=== PATIENT | male | born 1995 | race Two or more races ===

== ENCOUNTER 2021-03-01 13:34 | Emergency (ER) | payer OTHER, SELFPAY ==
[2021-03-01 13:48] VITALS: BP 118/71; PULSE 81; RESP 18; TEMP 36.8; O2SAT 100
--- NOTE | 2021-03-01 14:01 | PC.NURSE ---
1350 following vs mother/pt state they are going directly to er because pain has worsened since arrival. pt states does not want to seen at this time. observed pt ambulates without difficulty in no acute distress.
== END 2021-03-01 13:50 | disposition left against medical advice (07) ==
PROVIDERS: Emergency Provider Nurse Practitioner Family
DX: Z53.21 Procedure and treatment not carried out due to patient leaving prior to being seen by health care provider (principal)
CPT/HCPCS: 99199

== ENCOUNTER 2021-03-01 14:21 | Observation (INO) | payer OTHER, SELFPAY ==
--- NOTE | ~2021-03-01 | CT_ITS ---
EXAMINATION: CT abdomen pelvis wo con DATE: 03/01/2021 14:44 INDICATION: Right flank pain, nausea TECHNIQUE: Computed tomography (CT) of the abdomen and pelvis was performed without intravenous contr ast. Automated exposure control and iterative reconstruction technique were employed. Exam dose: 182 .08 mGy-cm total exam DLP. COMPARISON: 01/21/[address] renal scan FINDINGS: The lung bases are clear of infiltrate or consolidation. Normal heart size. No pericardial or pleural effusion. The liver, gallbladder, bile ducts, spleen, pancreas, pancreatic duct, and adrenal glands and left ki dney appear unremarkable. There is a 4 mm distal right ureteral calculus near the right ureterovesical junction with moderately prominent right hydroureteronephrosis as a result. No other urinary tract calculus is detected. No r enal mass lesion is evident. Normal caliber of the abdominal aorta. No intraperitoneal or retroperitoneal or pelvic mass lesion or adenopathy or ascites. No bowel obstruction, bowel wall thickening, pneumatosis or intraperitoneal free air. Included skeletal structures are unremarkable. IMPRESSION: 4 mm distal right ureteral calculus with moderate right hydroureteronephrosis Reviewed, dictated and finalized at [facility]. Reviewed, dictated and finalized at location [facility]. IMPRESSION: 4 mm distal right ureteral calculus with moderate right hydrourete ronephrosis
--- NOTE | ~2021-03-01 | XR_ITS ---
EXAMINATION: XR retrograde pyelo w/stent RT EXAM DATE: 03/02/2021 16:45 INDICATION: Retrograde, stent placement. Obstructive nephropathy. TECHNIQUE: Fluoroscopy used during XR retrograde pyelo w/stent RT performed by Dr. Scott Ace MD, urologist. The radiologist Donn Serrato M.D. dictating this report of the image(s) available wa s not present for the procedure. Total fluoroscopic time of 45 seconds. The DAP for this procedure was 259 radcm2. A total of 8 images sent to PACS from the exam. Cine run(s) available for review. FINDINGS: Internet Sales Representative image likely demonstrates the right UVJ 4 mm stone. Right ureter was cannulated, inje cted. There is moderate right-sided hydroureteronephrosis. A double-J ureteral stent was placed. Cor relate with procedure note. IMPRESSION: Moderate right hydroureteronephrosis. Stent in position. Reviewed, dictated and finalized at location [facility].
[2021-03-01 14:23] VITALS: BP 119/73; PULSE 70; RESP 16; TEMP 36.4; O2SAT 100
[2021-03-01 14:50] LABS: Basophils Absolute Auto 0.1 K/mm3 (0.0-0.1); Basophils Percent Auto 0.6 % (0.2-1.2); Eosinophils Absolute Auto 0.1 K/mm3 (0-0.3); Eosinophils Percent Auto 0.6 % (0-4.4); Hemoglobin 16.5 g/dL (14.0-18.0); Immature Granulocyte Absolute 0.05 K/mm3 (0.00-0.031); Immature Granulocyte Percent A 0.4 % (0-0.5); Lymphocytes Absolute Auto 0.95 K/mm3 (0.9-3.2); Lymphocytes Percent Auto 7.7 % (18.3-44.2); Mean Corpuscular Hemoglobin 29.9 pg (26-34); Mean Corpuscular Volume 90.7 fl (80-100); Monocytes Absolute Auto 0.7 K/mm3 (0.1-0.6); Monocytes Percent Auto 5.6 % (2.6-8.5); Neutrophils Absolute Auto 10.6 K/mm3 (1.3-6.7); Neutrophils Percent Auto 85.1 % (45.5-73.1); Platelet Count Result 194 k/mm3 (150-375); Red Blood Count 5.51 M/mm3 (4.6-6.20); Red Cell Distribution Width 12.5 % (11.5-14.5); White Blood Count 12.4 K/mm3 (4.5-10.0)
[2021-03-01 14:59] LABS: Anion Gap 8 mmol/L (8-16); Blood Urea Nitrogen 21 mg/dL (9-20); Calcium 9.5 mg/dL (8.4-10.2); Carbon Dioxide 29 mmol/L (22-30); Chloride 103 mmol/L (98-107); Estimated CRCL calculation 60 ml/min; Estimated Glomerular Filt Rate 54; Glucose 97 mg/dL (65-110); Potassium 4.2 mmol/L (3.4-5.0); Sodium 140 mmol/L (137-145)
[2021-03-01 17:08] LABS: Add Urine Microscopic? YES; Appearance Urine Clear (Clear); Bilirubin Urine Negative (Negative); Blood Urine 2+ (Negative); Color Urine Yellow (Yellow); Glucose Urine UA Negative (Negative); Ketones Urine Trace mg/dL (Negative); Leukocyte Esterase Ur Negative LEU/UL (Negative); Mucus Urine Rare /lpf; Nitrate Urine Negative (Negative); Protein Urine Negative (Negative); RBC Urine >75 /hpf (0-2); Specific Grav Ur 1.026 (1.001-1.035); WBC Urine 0-3 /hpf
--- NOTE | 2021-03-01 17:10 | ED.ABDPAIN ---
HPI - Abdominal Pain General Chief Complaint: Abdominal Pain <Nafisa Walter PA-C - Last Filed: 03/01/21 21:20> Stated Complaint: RIGHT FLANK PAIN <Nafisa Walter PA-C - Last Filed: 03/01/21 21:20> Time Seen by Provider: 03/01/21 16:56 <Nafisa Walter PA-C - Last Filed: 03/01/21 21:20> Source: patient <Nafisa Walter PA-C - Last Filed: 03/01/21 21:20> Mode of arrival: ambulatory <Nafisa Walter PA-C - Last Filed: 03/01/21 21:20> Limitations: no limitations <Nafisa Walter PA-C - Last Filed: 03/01/21 21:20> History of Present Illness HPI narrative: This is a 25 year old male that presents to the ER for right sided flank pain since yesterday. Associated with nausea. Reports history of kidney stones. Denies fever, vomiting, dysuria, hematuria. <Nafisa Walter PA-C - Last Filed: 03/01/21 21:20> Related Data Home Medications: Home Medications Medication Instructions Recorded Confirmed No Home Medications 03/01/21 03/01/21 <Nafisa Walter PA-C - Last Filed: 03/01/21 21:20> Allergies/Adverse Reactions: Allergies Allergy/AdvReac Type Severity Reaction Status Date / Time strawberry Allergy Swelling Verified 03/01/21 14:22 <Nafisa Walter PA-C - Last Filed: 03/01/21 21:20> Review of Systems Review of Systems: Narrative: CONSTITUTIONAL: Denies fever GASTROINTESTINAL: Reports nausea. Denies abdominal pain, vomiting GENITOURINARY: Denies dysuria or hematuria. <Nafisa Walter PA-C - Last Filed: 03/01/21 21:20> All systems reviewed & are unremarkable except as noted in HPI and below <Nafisa Walter PA-C - Last Filed: 03/01/21 21:20> [facility] Past Medical History Medical History: Medical History (Updated 03/01/21 @ 21:20 by Nafisa Walter PA-C) History of asthma <Nafisa Walter PA-C - Last Filed: 03/01/21 21:20> Social History Social History: Social History (System 07/28/20 @ 11:46 by Tim Romero) Smoking status: Former smoker Alcohol intake: never Substance use: never Substance use type: does not use Gender identity (if verbalized by the patient): Male Spiritual care concerns: No <Nafisa Walter PA-C - Last Filed: 03/01/21 21:20> Exam Narrative: Exam Narrative: GENERAL: Well-appearing, well-nourished, and in no acute distress. HEAD: Normocephalic, atraumatic. EYES: EOMI. CHEST: Clear to auscultation. No respiratory distress. No wheezes rales or rhonchi HEART: Regular rate and rhythm. No murmur heard. Normal peripheral pulses. ABDOMEN: Soft, nondistended, normal active bowel sounds. Mild tenderness to palpation throughout the right side of the abdomen, without guarding. No CVA tenderness EXTREMITIES: Normal range of motion. No edema. SKIN: Warm, dry, no rash. NEURO: No focal deficits. Alert and oriented x3. PSYCH: Normal mood and affect <Nafisa Walter PA-C - Last Filed: 03/01/21 21:20> Course ASSIGNMENT AGENT/PA Physician Supervision For this patient encounter, I reviewed the ASSIGNMENT AGENT or PA documentation, treatment plan, and medical decision making; and I had [id number] time with this patient. <Tavon Archuleta MD - Last Filed: 03/01/21 21:38> Consultations Consultation #1: Since patient has required IV narcotics and is still uncomfortable, recommends admission for further pain control and possible intervention. <Nafisa Walter PA-C - Last Filed: 03/01/21 21:20> Date: 03/01/21 <Nafisa Walter PA-C - Last Filed: 03/01/21 21:20> Time: 20:00 <Nafisa Walter PA-C - Last Filed: 03/01/21 21:20> Consultation #2: Spoke with hospitalist about patient and work-up who accepts admission <Nafisa Walter PA-C - Last Filed: 03/01/21 21:20> Date: 03/01/21 <Nafisa Walter PA-C - Last Filed: 03/01/21 21:20> Time: 20:05 <Nafisa Walter PA-C - Last Filed: 03/01/21 21:20> Vital Signs Vital signs: Vital Signs Temperature 36.4 C 03/01/21 14:23 Pulse Rate 70
[2021-03-01] MEDS: SODIUM CHLORIDE 0.9% IV 1,000 ML 999 ML IV CONT (17:48)
[2021-03-01] MEDS: ONDANSETRON INJ 4 MG/2 ML VIAL IV PUSH (17:49)
[2021-03-01] MEDS: MORPHINE SULFATE (*CRX) 4 MG/ML INJ IV PUSH ×2 (17:49→20:59)
[2021-03-01 17:54] VITALS: BP 121/62; PULSE 84; RESP 18; TEMP 36.7; O2SAT 100
[2021-03-01 19:54] VITALS: BP 119/52; PULSE 81; RESP 16; TEMP 36.6; O2SAT 100
--- NOTE | 2021-03-01 20:00 | PM.IMHP ---
H&P: HPI History of Present Illness Date/Time: 03/01/21 20:00 Chief Complaint: Right flank pain. Narrative: This is a pleasant 25-year-old male with history of kidney stones at the age of 89 presented to the emergency department earlier today for evaluation of right-sided flank pain. He developed nearly sudden onset of right-sided flank pain yesterday that he describes as sharp and shooting in nature. It has been constant since the outset but seems to be colicky in nature. the pain has not radiated. He gives no significant aggravating or alleviating factors. Tylenol taken at home did not provide much relief. Associated symptoms include nausea, vomiting, and mild dysuria. There was blood in his UA today and a CT of the abdomen pelvis showed a 4 mm distal right ureteral calculus with moderate right hydroureteronephrosis. Unfortunately he has had ongoing pain and he is being admitted in this setting. He has not had a documented fever but does report chills and sweats. Currently rating his pain 8/10. Review of Systems Review of Systems: Narrative: Twelve systems were reviewed with pertinent positives and negatives as per HPI. No recent cold or flu symptoms. No known exposure to those positive for COVID-19. He has noticed a slight decrease in urine output. Except as documented, all other systems were reviewed and are negative. [facility] Past Medical History Medical History (Updated 03/01/21 @ 23:38 by Bobbi Mcknight PA-C) Asthma Kidney stone (~2005) Surgical History Surgical History No history of previous surgery Family History Family History (Updated 03/01/21 @ 23:36 by Bobbi Mcknight PA-C) Father Asthma Social History Social History (Updated 03/01/21 @ 23:38 by Bobbi Mcknight PA-C) Social History: The patient lives in [place] with his family. He works at [employer] and is studying criminal justice at [employer]. No alcohol, tobacco, or substance use. He designates his mother, Lexy Rogers, as his surrogate decision maker. Code status: Full code. Meds Home Medications and Allergies Home Medications Medication Instructions Recorded Confirmed Type No Home Medications 03/01/21 03/01/21 History Allergies Allergy/AdvReac Type Severity Reaction Status Date / Time strawberry Allergy Swelling Verified 03/01/21 14:22 Vital Signs Vital Signs - 24 hr 03/01/21 14:23 03/01/21 17:54 03/01/21 19:54 Temperature 97.6 F 98.0 F 97.9 F Pulse Rate 70 84 81 Respiratory Rate 16 18 16 Blood Pressure 119/73 121/62 119/52 L Pulse Oximetry 100 100 100 03/01/21 21:31 Temperature 97.0 F L Pulse Rate 64 Respiratory Rate 16 Blood Pressure 122/56 L Pulse Oximetry 100 H&P: Results Labs Labs: Short CBC 03/01/21 Range/Units 14:33 WBC 12.4 H (4.5-10.0) K/mm3 Hgb 16.5 (14.0-18.0) g/dL Hct 50.0 (42.0-52.0) % Plt Count 194 (150-375) k/mm3 BMP 03/01/21 14:33 Sodium 140 Potassium 4.2 Chloride 103 Carbon Dioxide 29 BUN 21 H Creatinine 1.60 H Glucose 97 Calcium 9.5 Urine 03/01/21 Range/Units 16:45 Urine Color Yellow (Yellow) Urine Appearance Clear (Clear) Urine pH 7.0 (5.0-9.0) Ur Specific [place] 1.026 (1.001-1.035) Urine Protein Negative (Negative) mg/dL Urine Glucose (UA) Negative (Negative) mg/dL Impressions Abdomen/Pelvis CT 03/01/21 14:47 IMPRESSION: 4 mm distal right ureteral calculus with moderate right hydroureteronephrosis. Assessment and Plan Assessment and plan (1) Ureteral calculus: Code(s): N20.1 - Calculus of ureter Status: Acute (2) Hydroureteronephrosis: Code(s): N13.30 - Unspecified hydronephrosis Status: Acute (3) Acute kidney injury: Code(s): N17.9 - Acute kidney failure, unspecified Status: Acute Additional Plan The patient presents today with acute right flank pain that started yesterday. He was found t
--- NOTE | 2021-03-01 21:22 | ADMGEN ---
This patient, Tabitha Rogers, was admitted to Medical Room 349-01. Patient/family oriented to hospital policies and general routines including ID bracelet, bed and alarms, visiting hours, pain management, procedures, bathroom and other care routines, personal items, smoking policy, room service/diet, and visiting hours. Information on how to activate the Rapid Response Team has been discussed. Patient/Family are encouraged to report perceived risks to care and to ask questions if they do not understand what they are told or what they should do.
[2021-03-01] MEDS: SODIUM CHLORIDE 0.9% IV 1,000 ML 125 ML IV CONT (21:30)
[2021-03-01 21:31] VITALS: BP 122/56; PULSE 64; RESP 16; TEMP 36.1; O2SAT 100; BMI 19.1
[2021-03-01] MEDS: KETOROLAC 15 MG/ML VIAL (*BKC) IV PUSH (22:12)
[2021-03-02] VITALS (11 sets, daily range): BP systolic 84–116; BP diastolic 50–87; PULSE 44–95; RESP 12–20; TEMP 35.9–36.7; O2SAT 99–100
[2021-03-02] MEDS: MORPHINE SULFATE (*CRX) 4 MG/ML INJ IV PUSH (05:58)
[2021-03-02] MEDS: SODIUM CHLORIDE 0.9% IV 1,000 ML 100 ML IV CONT ×2 (05:59→18:33)
[2021-03-02 06:00] LABS: Hematocrit 42.7 % (42.0-52.0); Hemoglobin 14.1 g/dL (14.0-18.0); Mean Corpuscular Hemoglobin 29.6 pg (26-34); Mean Corpuscular Volume 89.7 fl (80-100); Mean Platelet Volume 9.8 fl (7.4-10.4); Platelet Count Result 159 k/mm3 (150-375); Red Blood Count 4.76 M/mm3 (4.6-6.20); Red Cell Distribution Width 12.1 % (11.5-14.5); White Blood Count 7.1 K/mm3 (4.5-10.0)
[2021-03-02 06:17] LABS: Anion Gap 8 mmol/L (8-16); Blood Urea Nitrogen 21 mg/dL (9-20); Calcium 8.3 mg/dL (8.4-10.2); Carbon Dioxide 25 mmol/L (22-30); Chloride 105 mmol/L (98-107); Estimated CRCL calculation 55 ml/min; Estimated Glomerular Filt Rate 50; Glucose 86 mg/dL (65-110); Magnesium 1.8 mg/dL (1.6-2.3); Potassium 3.8 mmol/L (3.4-5.0); Sodium 138 mmol/L (137-145)
--- NOTE | 2021-03-02 07:45 | WPDURCON ---
Assessment and Plan Assessment and plan (1) Calculus of proximal right ureter: Code(s): N20.1 - Calculus of ureter Status: Acute Assessment and Plan: plan discussed with patient. I plan on right ureteroscopy with stone extraction and possible stent placement should he not pass the stone during the day today. It is currently scheduled for for p.m.. He understands risks of bleeding, infection, damage to the urinary tract, inability remove the stone. He agrees to proceed. It is possible he could go home postoperatively unless the medicine service wants to monitor his creatinine. (2) Hydroureteronephrosis: Code(s): N13.30 - Unspecified hydronephrosis Status: Acute (3) Acute kidney injury: Code(s): N17.9 - Acute kidney failure, unspecified Status: Acute Urology Consult Note HPI Date Seen: 03/02/21 Requesting Physician: Eugenie Tesfaye PA-C Primary Care Provider: TU[facility]ER PHYSICIAN Consult Narrative Narrative: Donald Rogers is a 25 year old male With a history of nephrolithiasis as a child. He has not had a stone since age 11. He had acute onset of right-sided flank pain on Tuesday morning. He left work due to the pain and tried to deal with things at home. Pain became so intense he presented the emergency room yesterday. He was found have acute kidney injury with a elevated creatinine. He denies any visible blood in the urine. He denies any symptoms of urinary tract infection. He denies any nausea vomiting. He has not seen the stone pass overnight and does continue to have discomfort. Review of Systems Review of Systems: All systems reviewed & are unremarkable except as noted in HPI and below PMFSH Past Medical History Medical History (Updated 03/02/21 @ 07:48 by Scott Ace MD) Asthma Kidney stone (~2005) Surgical History Surgical History No history of previous surgery Family History Family History (Updated 03/01/21 @ 23:36 by Bobbi Mcknight PA-C) Father Asthma Social History Social History (Updated 03/01/21 @ 23:38 by Bobbi Mcknight PA-C) Social History: The patient lives in [place] with his family. He works at [employer] and is studying criminal justice at [employer]. No alcohol, tobacco, or substance use. He designates his mother, Lexy Rogers, as his surrogate decision maker. Code status: Full code. Meds Home Medications and Allergies Home Medications Medication Instructions Recorded Confirmed Type No Home Medications 03/01/21 03/01/21 History Allergies Allergy/AdvReac Type Severity Reaction Status Date / Time strawberry Allergy Swelling Verified 03/01/21 14:22 Vital Signs Vital Signs - 24 hr 03/01/21 14:23 03/01/21 17:54 03/01/21 19:54 Temperature 97.6 F 98.0 F 97.9 F Pulse Rate 70 84 81 Respiratory Rate 16 18 16 Blood Pressure 119/73 121/62 119/52 L Pulse Oximetry 100 100 100 03/01/21 21:31 03/02/21 05:06 Temperature 97.0 F L 96.7 F L Pulse Rate 64 73 Respiratory Rate 16 16 Blood Pressure 122/56 L 103/56 L Pulse Oximetry 100 100 Exam Const: General: cooperative, healthy appearing and Physically active Nutritional Appearance: average body habitus HENMT: Head: normal to inspection Ears: hearing grossly normal bilaterally Face and sinus: normal facial exam Eyes: General: appearance normal, both eyes and all related structures Resp: Effort & Inspection: normal respiratory effort, able to speak in complete sentences and no cough GI: Inspection: normal to inspection Back/Spine/Pelvis: Back: CVA tenderness Skin: General skin exam: normal color, no rashes or lesions noted and skin not dry Neuro: General: oriented to person, oriented to place and oriented to time Speech: normal speech Extrem: General: normal to inspection Psych: Appearance: grossly normal and well kempt Results Labs CBC & Chem 7: 03/02/21 05:22
--- NOTE | 2021-03-02 07:51 | WPDHPUPDATE1 ---
History and Physical Update Update Date/Time: 03/02/21 07:51 History and Physical has been reviewed, including an updated exam of the patient. There are NO changes in the patient's condition. Risks, benefits, and alternatives have been discussed and questions answered. Patient agrees to proceed with procedure.
--- NOTE | 2021-03-02 14:45 | PC.NURSE ---
Patient to OR per stretcher. Report to JOSE A Hernández.
[2021-03-02] MEDS: LACTATED RINGERS 1,000 ML 30 ML IV CONT (14:50)
--- NOTE | 2021-03-02 15:41 | WPDANESEPPF ---
Anes - Initial Pre Proc Eval Procedure: Operation Date: 03/02/21 16:00 Proposed Procedures p Cystoscopy, Right Ureterocopy,Stone Extraction - Scott Ace MD Date/Time: 03/02/21 15:41 Surgeon: Eugenie Tesfaye PA-C Pre Op Diagnosis: Ureterolithiasis Patient Data Age: 25 Gender: M Height: 1.83 m Weight: 64 kg Last Vital Signs Temp 36.2 C L 03/02/21 15:01 Pulse 74 03/02/21 14:00 Resp 20 03/02/21 14:00 BP 115/77 03/02/21 14:00 Pulse Ox 100 03/02/21 14:00 Allergies Allergy/AdvReac Type Severity Reaction Status Date / Time strawberry Allergy Swelling Verified 03/02/21 15:00 Home Medications Medication Instructions Recorded Confirmed Type No Home Medications 03/01/21 03/02/21 History Laboratory Tests 03/01/21 03/02/21 03/02/21 16:45 05:22 05:22 WBC 7.1 K/mm3 K/mm3 (4.5-10.0) RBC 4.76 M/mm3 M/mm3 (4.6-6.20) Hgb 14.1 g/dL g/dL (14.0-18.0) Hct 42.7 % % (42.0-52.0) MCV 89.7 fl fl (80-100) MCH 29.6 pg pg (26-34) MCHC 33.0 g/dl g/dl (32-36) RDW 12.1 % % (11.5-14.5) Plt Count 159 k/mm3 k/mm3 (150-375) MPV 9.8 fl fl (7.4-10.4) Sodium 138 mmol/L mmol/L (137-145) Potassium 3.8 mmol/L mmol/L (3.4-5.0) Chloride 105 mmol/L mmol/L (98-107) Carbon Dioxide 25 mmol/L mmol/L (22-30) Anion Gap 8 mmol/L mmol/L (8-16) BUN 21 mg/dL H mg/dL (9-20) Creatinine 1.70 mg/dL H mg/dL (0.7-1.3) Estim Creat Clear Calc 55 ml/min ml/min Estimated GFR 50 L (59 - ) Glucose 86 mg/dL mg/dL (65-110) Calcium 8.3 mg/dL L mg/dL (8.4-10.2) Magnesium 1.8 mg/dL mg/dL (1.6-2.3) Urine Color Yellow (Yellow) Urine Appearance Clear (Clear) Urine pH 7.0 (5.0-9.0) Ur Specific [place] 1.026 (1.001-1.035) Urine Protein Negative mg/dL mg/dL (Negative) Urine Glucose (UA) Negative mg/dL mg/dL (Negative) Urine Ketones Trace mg/dL mg/dL (Negative) Ur Blood (Man) 2+ H (Negative) Urine Nitrate Negative (Negative) Urine Bilirubin Negative (Negative) Urine Urobilinogen 4.0 mg/dL H mg/dL (<2.0) Leukocyte Esterase Rfl Negative GER/UL GER/UL (Negative) Urine RBC >75 /hpf H /hpf (0-2) Urine WBC 0-3 /hpf /hpf Hyaline Casts 3-4 /lpf H /lpf (None) Urine Mucus Rare /lpf /lpf Patient hx anesthesia problems: none Family hx anesthesia problems: none [facility] Past Medical History Medical History Asthma Kidney stone (~2005) Surgical History Surgical History No history of previous surgery Family History Family History Father Asthma Social History Social History Social History: The patient lives in [place] with his family. He works at [employer] and is studying criminal justice at [email or web address]. No alcohol, tobacco, or substance use. He designates his mother, Lexy Rogers, as his surrogate decision maker. Code status: Full code. Anes - Eval Final PreProcedure Day of Procedure 03/02/21 15:41 Patient weight: normal Heart: regular rate and rhythm Lungs: clear to auscultation Airway: Mallampati scale class II Neurological: alert and oriented Last oral intake: >/= 8 hours ASA classification: II Emergent: no Anesthetic plan: proceed Anesthesia type and monitoring: general LMA and standard monitoring Informed Consent: The patient's anesthetic plan and its attendant risks and benefits were discussed with the patient/family/POA. Questions were solicited and answers provided t
[2021-03-02] MEDS: ceFAZolin 2 GM/D5W 50 ML 2 GM/50 ML BAG IVPB (16:05)
--- NOTE | 2021-03-02 16:47 | P.OP_ITS ---
Procedure Note - Detailed Date of Procedure 03/02/21 Pre-op Diagnosis Ureterolithiasis Post-op Diagnosis same Procedure Performed cystoscopy, right retrograde pyelogram, right ureteroscopy, stone extraction, stent placement Surgeon Scott Ace MD Anesthesia general Indications this is a young male with a right distal stone and acute kidney injury he presents today for stone extraction Findings false passage noted at right distal ureter. Stone successfully extracted. Stent placed Description of Procedure she was correctly identified. Informed consent obtained. From the operating room. Given general anesthesia. He was prepped and draped in a sterile fashion. Skin appropriate perioperative antibiotics. Time-out performed. I performed cystoscopy. The bladder was examined was normal. I attempted to place a guidewire on the right. The stone was impacted at the right ureteral orifice. I attempted a been sent, a glide, an angled Glidewire. I was unable to get past the stone. I decided performed rigid ureteroscopy. I guided the distal ureter and a false passage was encountered. I was then able to find the true ureter. I placed a guidewire up into the kidney. I then performed rigid ureteroscopy. The stone was encountered. It was extracted intact. I then did a retrograde pyelogram. There is hydronephrosis without extravasation. I made sure the guidewire was in the renal pelvis. I then placed a 4.8 variable length stent. Proximal coil in the renal pelvis. Distal coil in the bladder. He was awakened transferred to PACU in stable condition. Implants Variable length stent 4.8 [place] Estimated Blood Loss 1 Drains Yes ( variable length stent) Packing No Pathology yes ( stone) Complications No immediate complications Condition stable Disposition PACU
--- NOTE | 2021-03-02 16:50 | WPDUROPN2 ---
Subjective Subjective Date/Time Seen: 03/02/21 16:50 successful ureteroscopy with stone extraction. Stent was placed. If his renal function improves he can go home tomorrow. Will need stent removal in 1 week. Please sent home with pain medicine, Ditropan, Pyridium. Objective Data Vital Signs Vital Signs: Vital Signs - 24 hr 03/01/21 17:54 03/01/21 19:54 03/01/21 21:31 Temperature 98.0 F 97.9 F 97.0 F L Pulse Rate 84 81 64 Respiratory Rate 18 16 16 Blood Pressure 121/62 119/52 L 122/56 L Pulse Oximetry 100 100 100 03/02/21 05:06 03/02/21 14:00 03/02/21 15:01 Temperature 96.7 F L 98.0 F 97.1 F L Pulse Rate 73 74 Respiratory Rate 16 20 Blood Pressure 103/56 L 115/77 Pulse Oximetry 100 100 Intake/Output Intake/Output: Intake & Output 02/27/21 02/28/21 03/01/21 03/02/21 23:59 23:59 23:59 23:59 Intake Total 1100 1150 Balance 1100 1150 Meds/Results Medications: Active Medications Generic Name Dose Route Start Last Admin Trade Name Freq PRN Reason Stop Dose Admin Fentanyl Citrate 25 mcg 03/02/21 15:42 Fentanyl Citrate Inj (*Crx) 100 Mcg/2 Ml Vial IV PUSH Q2M PRN Pain Acetaminophen 1,000 mg in 100 mls @ 400 mls/hr 03/01/21 19:19 03/02/21 08:50 Ofirmev 1,000 Mg Ivpb IVPB 03/02/21 19:20 Infused Q6H PRN Infusion Mild Pain (1-3) or Fever Sodium Chloride 1,000 mls @ 100 mls/hr 03/01/21 19:20 03/02/21 05:59 Normal Saline Iv IV CONT 100 mls/hr .Q10H PATRICK Administration Lactated Ringer's 1,000 mls @ 30 mls/hr 03/02/21 15:40 03/02/21 14:50 Lr - Lactated Ringers Iv IV CONT 30 mls/hr .Q24H PATRICK Administration Lactated Ringer's 1,000 mls @ 30 mls/hr 03/02/21 15:45 Lr - Lactated Ringers Iv IV CONT .Q24H [facility] Morphine Sulfate 4 mg 03/01/21 19:19 03/02/21 05:58 Morphine Sulfate (*Crx) 4 Mg/Ml Inj IV PUSH 4 mg Q2H PRN Administration Pain Rated 7-10 Ondansetron HCl 4 mg 03/01/21 19:19 Ondansetron Inj 4 Mg/2 Ml Vial IV PUSH Q4H PRN Nausea Ondansetron HCl 4 mg 03/02/21 15:42 Ondansetron Inj 4 Mg/2 Ml Vial IV PUSH ONCE PRN Nausea Radiology Results: ITS Impressions Abdomen/Pelvis CT 03/01/21 14:47 IMPRESSION: 4 mm distal right ureteral calculus with moderate right hydroureteronephrosis Labs Labs: Laboratory Results - last 24 hr 03/01/21 03/02/21 03/02/21 16:45 05:22 05:22 WBC 7.1 RBC 4.76 Hgb 14.1 Hct 42.7 MCV 89.7 MCH 29.6 MCHC 33.0 RDW 12.1 Plt Count 159 MPV 9.8 Sodium 138 Potassium 3.8 Chloride 105 Carbon Dioxide 25 Anion Gap 8 BUN 21 H Creatinine 1.70 H Estim Creat Clear Calc 55 Estimated GFR 50 L Glucose 86 Calcium 8.3 L Magnesium 1.8 Urine Color Yellow Urine Appearance Clear Urine pH 7.0 Ur Specific [place] 1.026 Urine Protein Negative Urine Glucose (UA) Negative Urine Ketones Trace Ur Blood (Man) 2+ H Urine Nitrate Negative Urine Bilirubin Negative Urine Urobilinogen 4.0 H Leukocyte Esterase Rfl Negative Urine RBC >75 H Urine WBC 0-3 Hyaline Casts 3-4 H Urine Mucus Rare Quality VTE Prophylaxis VTE prophylaxis: mechanical ordered
--- NOTE | 2021-03-02 18:00 | PC.NURSE ---
Pt returned from OR per stretcher. Report received from JOSE A Altamirano.
[2021-03-02 19:27] LABS: Anion Gap 6 mmol/L (8-16); Blood Urea Nitrogen 21 mg/dL (9-20); Calcium 8.9 mg/dL (8.4-10.2); Carbon Dioxide 27 mmol/L (22-30); Chloride 104 mmol/L (98-107); Estimated CRCL calculation 72 ml/min; Estimated Glomerular Filt Rate > 60; Glucose 135 mg/dL (65-110); Potassium 4.6 mmol/L (3.4-5.0); Sodium 137 mmol/L (137-145)
--- NOTE | 2021-03-02 19:39 | PM.DS ---
DS: Admitting Diagnosis Admitting Diagnosis Ureteral calculus DS: Discharge Diagnosis Discharge Diagnosis (1) Ureteral calculus: Code(s): N20.1 - Calculus of ureter Status: Acute Assessment and Plan: CT a/ P with 4 mm distal right ureteral calculus with moderate right hydroureteronephrosis he was admitted for IV hydration and pain control s/p cystoscopy, ureteroscopy, stone extraction, and stent placement on 03/02/[address] Ace follow-up with urology as an outpatient (2) Hydroureteronephrosis: Code(s): N13.30 - Unspecified hydronephrosis Status: Acute Assessment and Plan: as above (3) Acute kidney injury: Code(s): N17.9 - Acute kidney failure, unspecified Status: Acute Assessment and Plan: postrenal etiology secondary to obstruction from stone. Creatinine elevated at 1.7, declined to 1.3 postoperatively DS: Summary Hospital Course Hospital Course: date of admission: 03/01/2021 date of discharge: 03/02/2021 Donald Rogers is a 25-year-old male with a history of asthma and kidney stones who presented to the emergency department on 03/01/2021 with complaints of right-sided flank pain and associated nausea. Upon presentation to the emergency department, her vital signs are stable, he was afebrile, mild leukocytosis with WBC 12.4, additional CBC unremarkable, BUN and creatinine elevated with other electrolytes stable, UA with 2+ blood and no evidence of infection, and CT abdomen/pelvis with 4 mm distal right ureteral calculus with moderate right hydroureteronephrosis. He was admitted to the hospitalist service for further evaluation and management and seen in consultation by Urology. He underwent with stone extraction and his pain improved. Renal function improved postoperatively as well. He will need to follow-up with urology as an outpatient. He will also need to establish care with a PCP and a list of providers was given. He began feeling much better and requested discharge home. Given his overall improvement, he was determined to no longer require inpatient care was felt to be stable for discharge. We discussed worrisome signs and symptoms for which to return and he was educated on his medications. He was given a short course of analgesics, as well as oxybutynin and phenazopyridine as needed per urology recommendations. he was discharged in hemodynamically stable condition on 03/02/2021. Status at Discharge Functional status at discharge: independent ambulation Overall status at discharge: patient is progressing back to baseline Time Spent with Patient Time attestation: Total time spent providing and/or coordinating discharge services: 45 minutes Time spent: Greater than 30 minutes Exam Narrative: Exam Narrative: Mr. Rogers is a well-nourished, well-appearing 25-year-old male who is lying supine in bed. he appears comfortable and is in NARD. Neuro: awake, alert and oriented x4, speech clear, no focal neuro deficits noted HEENMT: normocephalic, atraumatic, EOMI, sclerae anicteric, moist oral mucosa Neck: supple, no lymphadenopathy Respiratory: clear to auscultation bilaterally, nonlabored breathing Cardio: regular rate, regular rhythm with S1-S2 Abdomen: nondistended, normoactive bowel sounds, soft, nontender to palpation : right-sided CVA tenderness Extremities: no edema, erythema, or tenderness to palpation, DP pulses 2+ bilaterally Skin: no rashes or lesions, warm and dry Psych: appropriate mood and affect, judgment and insight intact DS: Data Data Completed and Pending Pending studies at discharge: Pending at discharge 03/02/21 16:37 Surgical [PTH] Routine Labs on day of discharge: Labs from last 24 hours 03/02/21 03/02/21 03/02/21 18:59 05:22 05:22 WBC 7.1 RBC 4.76 Hgb 14.1 Hct 42.7 MCV 89.7 MCH 29.6 MCHC 33.0 RDW 12.1 Plt Count 159 MPV 9.8 Sodium 137 138
[2021-03-02] MEDS: PHENAZOPYRIDINE HCL 100 MG TABLET 200 MG PO (20:13)
[2021-03-02] MEDS: OXYBUTYNIN CHLORIDE 5 MG TABLET PO (20:14)
--- NOTE | 2021-03-03 07:24 | WPDANESPN ---
Anes - Prog Note Post-Op Date/Time: 03/03/21 07:24 Cardiovascular status: normal Respiratory status: normal Airway patency: baseline Mental status: baseline Post-Op hydration status: normal Vital Signs: Last Vital Signs Temp 36.1 C L 03/02/21 19:41 Pulse 75 03/02/21 19:41 Resp 18 03/02/21 19:41 BP 100/56 L 03/02/21 19:41 Pulse Ox 99 03/02/21 19:41 Pain Score (VAS): 2 I/O: Intake & Output 03/02/21 03/02/21 03/03/21 15:59 23:59 07:59 Intake Total 100 1350 Balance 100 1350 Laboratory Tests 03/02/21 05:22 03/02/21 18:59 03/02/21 18:59 Sodium 137 Potassium 4.6 Chloride 104 Carbon Dioxide 27 Anion Gap 6 L BUN 21 H Creatinine 1.30 Estim Creat Clear Calc 72 Estimated GFR > 60 Glucose 135 H Calcium 8.9 Post-procedural complaints: none Patient Feedback: Patient satisfied with anesthetic care.
== END 2021-03-02 20:06 | disposition home or self-care (01) ==
LOC: ANHED 19:45 → ANH2MED 19:47 → ANH3MED 21:18
PROVIDERS: Physician Assistant; Urology; Admitting Provider Family Medicine; Emergency Provider Emergency Medicine; Visit Provider Internal Medicine Critical Care Medicine
PROC: (CPT 52352; principal; 2021-03-02 16:00)
DX: N13.2 Hydronephrosis with renal and ureteral calculous obstruction (principal); N17.9 Acute kidney failure, unspecified; J45.909 Unspecified asthma, uncomplicated; Z87.891 Personal history of nicotine dependence
CPT/HCPCS: 52332; 52352; 36415; 74176; 74420; 80048; 81001; 82365; 83735; 85025; 85027; 88300; 96361; 96365; 96374; 96375; 96376; 99285; A9270; C1769; C1887; C2617; G0378; J0131; J0690; J1885; J2250; J2270; J2405; J3010; J7030; J7120